=== PATIENT | female | born 1955 | race Caucasian/White ===

== ENCOUNTER 2020-02-23 07:31 | Outpatient (CLI) | payer MEDICARE, OTHER ==
[2020-02-23 14:05] LABS: Hemoglobin 14.5 g/dL (12.0-16.0); Mean Corpuscular Hemoglobin 28.7 pg (27.0-31.0); Mean Corpuscular Volume 89.8 fL (78.0-98.0); Mean Platelet Volume 8.3 fL (7.4-10.4); Platelet Count 278 thou/uL (130-400); RBC Distribution Width 12.5 % (11.5-14.5); Red Blood Cell (RBC) Count 5.04 mill/uL (4.20-5.40); White Blood Cell (WBC) Count 8.2 thou/uL (4.8-10.8)
[2020-02-23 14:23] LABS: Anion Gap 11 mmol/L (10-20); BUN (Urea Nitrogen) 13 mg/dL (9.8-20.1); Calc. Creatinine Clearance 0 mL/min (70-130); Calcium 9.5 mg/dL (7.8-10.44); Carbon Dioxide 31 mmol/L (23-31); Chloride 103 mmol/L (98-107); Estimated GFR-MDRD 57; Glucose 85 mg/dL (80-115); Potassium 5.2 mmol/L (3.5-5.1); Sodium 140 mmol/L (136-145)
[2020-02-23 14:33] LABS: PTT 33.2 sec (22.9-36.1); Prothrombin Time 12.7 sec (12.0-14.7)
[2020-02-24 12:21] LABS: SARS-CoV-2 MS2 Positive; SARS-CoV-2 N Gene Negative; SARS-CoV-2 S Gene Negative; SARS-CoV-2 orf1ab Negative
== END 2020-02-23 07:32 | disposition home or self-care (01) ==
LOC: LABBT 07:31
PROVIDERS: ATTEND Neurological Surgery
DX: Z01.812 Encounter for preprocedural laboratory examination (principal); Z11.59 Encounter for screening for other viral diseases; M50.00 Cervical disc disorder with myelopathy, unspecified cervical region
CPT/HCPCS: 80048; 85027; 85610; 85730; U0003; 87635

== ENCOUNTER 2020-02-27 05:25 | Day surgery (SDC) | payer MEDICARE ==
[2020-02-20 10:58] VITALS: BMI 48.2
--- NOTE | 2020-02-25 16:53 | HP ---
REASON FOR HISTORY AND PHYSICAL: C4-C5 ACDF. Case #[id number], scheduled for 02/27/2020. CHIEF COMPLAINT: Neck pain with right hand clumsiness. HISTORY OF PRESENT ILLNESS: Ms. Graff is a 64-year-old female who has 5 years of progressively worsening neck and right hand weakness where she has been dropping things more frequently. She admits that her balance has become worse where she has to keep her hands out from walking into [place]. She denies any bladder or bowel dysfunction. CURRENT MEDICATIONS: 1. Omeprazole. 2. Tizanidine. 3. Citalopram. 4. Furosemide. 5. Ibuprofen. PAST MEDICAL HISTORY: Anxiety, arthritis, chronic pain, depression, kidney/bladder problems. PAST SURGICAL HISTORY: Knee replacement in 2014, stomach staple in 2013. FAMILY HISTORY: Father , diagnosed with diabetes, heart disease, cancer. Mother , diagnosed with hypertension, heart disease, and cancer. SOCIAL HISTORY: Former smoker. Does not drink alcohol or use illicit drugs. ALLERGIES: NO KNOWN DRUG ALLERGIES. HOSPITALIZATION: Knee replacement in 2014, stomach staple in 2013. REVIEW OF SYSTEMS: CONSTITUTION: Denies fever or chills. ENT: Denies change in vision or hearing. CARDIAC: Denies chest pain, shortness of breath, or diaphoresis. PULMONARY: Denies shortness of breath, cough, or hemoptysis. GI: Denies fecal incontinence, abdominal pain, nausea, vomiting, diarrhea, change in stool formation and consistency. : Denies urinary incontinence, trouble with urination, frequency of urination, bloody urine. SKIN: Denies skin rashes, bruises, bleeding, skin masses. MUSCULOSKELETAL: As per history of present illness. NEUROLOGIC: As per history of present illness. PSYCHOLOGIC: Denies anxiety, depression, or behavior changes. PHYSICAL EXAMINATION: VITAL SIGNS: Weight 235, height 5 feet 3 inches. HEENT: Pupils are equal. Extraocular movements are intact. NECK: Soft, supple. No masses are noted. Range of motion is intact but painful. NEUROLOGIC: Awake, alert, and oriented x3. Memory, attention, fund of knowledge, and language are normal. Cranial nerves grossly intact. Upper extremity; weakness in bilateral triceps, FE, and interossei. Sensory exam: Nondermatomal numbness, right greater than left hand. Gait and station: Tandem gait is abnormal. IMAGING DATA: MRI of C-spine: C4-5 stenosis with herniated disk compressing on the cord. X-ray C-spine: Flexion-extension is stable. 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 PLAN: 1. ACDF C4-5. 2. Preop testing for CBC, PT, PTT, and COVID-19. 3. Anesthesia clearance. 4. Informed consent: We discussed the indications, risks, benefits, alternatives, and expected results from surgery. The risks discussed included, but were not limited to, bleeding, infection, CSF leak, nerve damage, weakness, swallowing trouble, feeding tube placement, tracheal injury, esophageal injury, vocal cord injury, spinal cord injury, incontinence, paralysis, ventilator dependency, wheelchair dependency, stroke, loss of vision, carotid artery injury, jugular vein injury, hardware misplacement, cardiopulmonary complications of anesthesia or . Long-term complications discussed included, but were not limited to hardware failure and degeneration of surrounding disk. She understands the risk and is willing to proceed. Job ID: [id number]
[2020-02-27] MEDS ORDERED: Thrombin 5000 UNITS/5 ML VIAL ONE (06:13)
[2020-02-27] MEDS ORDERED: Fentanyl 100 MCG/2 ML VIAL ONE ×4 (06:40→10:06)
[2020-02-27] MEDS ORDERED: Midazolam HCl 2 mg/2 ml Vial ONE (06:55)
--- NOTE | 2020-02-27 10:06 | OP ---
DATE OF PROCEDURE: 02/27/2020 [employer]RATORY GAME [employer] BIOLOGIST: Morgan Portillo PA-C PREOPERATIVE INDICATION: Prevent neurological deterioration. PREOPERATIVE DIAGNOSES: Cervical intervertebral disk herniation at C4-C5 with cord compression and myelopathy. POSTOPERATIVE DIAGNOSES: Cervical intervertebral disk herniation at C4-C5 with cord compression and myelopathy. OPERATIVE PROCEDURE: Anterior cervical diskectomy, intervertebral arthrodesis, and placement of intervertebral biomechanical device at C4-C5 and anterior cervical plating C4-C5, local morselized autograft, morselized allograft, and operating microscope. PREOPERATIVE MEDICATION: Ancef 2 g IV. DRAIN NUMBER: Zero. DRAIN TYPE: None. DESCRIPTION OF PROCEDURE: The patient was brought to the operating room. General endotracheal anesthesia was induced, keeping the neck in normal anatomic alignment, the head was supported in a gel-filled donut-shaped headrest. A lateral fluoro radiograph was used to plan our incision. The right side of the neck was sterilely prepped and draped. We opened our incision with a 10 blade knife and controlled bleeding with bipolar cautery. We dissected sharply to the platysma and we cut this muscle in-line with our incision. We continued our dissection medial to the sternocleidomastoid and lateral to the trachea and esophagus until we arrived at the prevertebral space. We placed a marker on the spine and a lateral fluoro radiograph identified the levels upon which we were operating. We then elevated the longus colli muscles off the anterior surface of C4 and C5. We placed self-retaining retractors beneath them. Distraction pins were placed in both of these vertebrae and we distracted across the interspace. We incised the C4-C5 interspace with a 15 blade knife and removed disk contents using curettes and rongeurs. As we approached the posterior longitudinal ligament, the operating microscope was brought into the field. Under microscopic magnification and using microsurgical techniques, we removed the remainder of the intervertebral disk. The posterior osteophytes and posterior longitudinal ligament across the entire interspace until the dura was well decompressed from one nerve root all the way to the other. We turned our attention to arthrodesis. The endplates were prepared for grafting with curettes. We measured the height of the interspace to 7 mm with a bone rasp. A 7 mm PEEK intervertebral graft was brought into the field. Osteophytes removed during decompression were cleaned of soft tissue attachments morcellized and added into demineralized bone matrix to form our fusion substrate. The substrate was packed into the center of the PEEK device and that was advanced into the interspace under radiographic guidance to the appropriate depth. We then removed the operating microscope. A 12 mm anterior cervical plate was brought into the field. We drilled commercial airplane pilot holes through the plate into the vertebral bodies at C4, C5, and we affixed the plate with 14 mm screws. Fixed angle screws were used at the C5 and variable angle screws at C4. We engaged the locking mechanism over each of the 4 screws. AP and lateral fluoro radiographs confirmed the levels upon which we were operating. We then irrigated with bacitracin irrigation. We closed in anatomical layers. We applied a sterile dressing. This was a clean case, no contamination. Job ID: [id number]
[2020-02-27] MEDS ORDERED: Morphine 4 MG/ML VIAL ONE (10:17)
[2020-02-27] MEDS ORDERED: Morphine 2 MG/ML VIAL ONE (10:41)
[2020-02-27] MEDS ORDERED: Ondansetron PF 4 MG/2 ML Vial ONE (11:09)
[2020-02-27] MEDS ORDERED: PROPOFOL 200 MG/20 ML VIAL ONE (11:09)
[2020-02-27] MEDS ORDERED: EPHEDRINE 25 MG/5 ML SYRINGE ONE (11:09)
[2020-02-27] MEDS ORDERED: Lidocaine 1% PF 5 ML VIAL ONE (11:09)
[2020-02-27] MEDS ORDERED: Dexamethasone 20 MG/5 ML VIAL ONE (11:09)
[2020-02-27] MEDS ORDERED: PHENYLEPHRINE-NS 100 MCG/ML 10 ML SYRINGE ONE (11:09)
[2020-02-27] MEDS ORDERED: Glycopyrrolate 0.2 MG/ML 5 ML SYRINGE ONE (11:09)
[2020-02-27] MEDS ORDERED: Rocuronium Bromide 10 MG/ML (10ML VIAL) ONE (11:09)
[2020-02-27] MEDS ORDERED: HYDROcodone/Acetaminophen 5/325 mg Tablet ONE (12:52)
== END 2020-02-27 13:40 | disposition home or self-care (01) ==
LOC: SDC 05:25
PROVIDERS: ATTEND Neurological Surgery
PROC: 0RG10A0 Fusion of Cervical Vertebral Joint with Interbody Fusion Device, Anterior Approach, Anterior Column, Open Approach (ICD-10-PCS; principal; 2020-02-27)
PROC: 0RT30ZZ Resection of Cervical Vertebral Disc, Open Approach (ICD-10-PCS; 2020-02-27)
DX: M50.021 Cervical disc disorder at C4-C5 level with myelopathy (principal); F41.9 Anxiety disorder, unspecified; M19.90 Unspecified osteoarthritis, unspecified site; G89.29 Other chronic pain; F32.9 Major depressive disorder, single episode, unspecified; J45.909 Unspecified asthma, uncomplicated; Z87.891 Personal history of nicotine dependence; Z79.899 Other long term (current) drug therapy
CPT/HCPCS: 20930; 20936; 22551; 22853; 76000; C1713 ×2; C1776 ×2; J2270; J0690; J1100; J2250; J2405; J2704; J3010; J3490

== ENCOUNTER 2020-04-21 14:20 | Outpatient (CLI) | payer MEDICARE ==
--- NOTE | 2020-04-21 15:40 | RAD ---
CERVICAL SPINE: 04/21/20 A total of six views. HISTORY: Postop follow-up. COMPARISON: 02/05/20. Anterior fusion changes are now noted at C4-5 with anterior plate and screws and interbody implant. P osterior alignment is preserved. Vertebral bodies maintain height. No other interval change noted. IMPRESSION: Post fusion changes at C4-5. POS: AH
== END 2020-04-21 14:21 | disposition home or self-care (01) ==
LOC: TBSIIMAG 14:20
PROVIDERS: ATTEND Neurological Surgery
DX: M50.20 Other cervical disc displacement, unspecified cervical region (principal); Z98.1 Arthrodesis status
CPT/HCPCS: 72040